=== PATIENT | female | born 1990 | race Caucasian/White ===

== ENCOUNTER 2016-09-30 20:13 | Emergency (ER) | payer OTHER ==
[~2016-09-30] VITALS: Ht 157.5 cm; Wt 76.9 kg
[~2016-09-30 20:13] MED LIST: ESCITALOPRAM OX10 MG PO; FLEXERIL10 MG PO; MOTRIN600 MG PO; SPRINTEC1 EACH PO
[2016-09-30 20:18] VITALS: BP 112/72
[2016-09-30] MEDS ORDERED: CLONAZEPAM0.5 MG PO (21:47)
[2016-09-30] MEDS ORDERED: FLUOXETINE HCL20 MG PO (21:48)
[2016-09-30] MEDS ORDERED: NORCO 5/3251 TABLET PO (23:16)
[2016-09-30] MEDS ORDERED: NAPROSYN500 MG PO (23:16)
== END 2016-09-30 23:26 | disposition home or self-care (01) ==
LOC: EME 20:13
DX: S30.0XXA Contusion of lower back and pelvis, initial encounter (principal); W10.9XXA Fall (on) (from) unspecified stairs and steps, initial encounter; F17.200 Nicotine dependence, unspecified, uncomplicated
CPT/HCPCS: 72100; 72220; 99281; 99283